=== PATIENT | female | born 1970 | race Caucasian/White ===

== ENCOUNTER 2018-01-26 12:18 | Emergency (ER) | payer OTHER ==
--- NOTE | 2018-01-26 12:33 | EDPHYS ---
Physician Documentation [facility] Name: Shantal Ruiz Age: 48 yrs Sex: Female : 1970 Arrival Date: 01/26/2018 Time: 12:19 Bed 28 Private MD: JAMIE BLAIR ED Physician Gilmer Haney HPI: 01/26 12:43 This 48 yrs old Female presents to ER via Ambulatory with complaints of kb Abscess. 12:43 The patient presents with an abscess of the lumbar area. Description: draining, kb erythematous, swollen, warm. Onset: The symptoms/episode began/occurred today. Possible cause(s): unknown. Associated signs and symptoms: Pertinent positives: drainage, erythema, swelling. Modifying factors: the symptoms are alleviated by nothing, the symptoms are aggravated by nothing. Severity of symptoms: At their worst the symptoms were moderate, in the emergency department the symptoms are unchanged. The patient has not experienced similar symptoms in the past. The patient has not recently seen a physician. Pt states "I think I have an abscess. I've never had one before and just wanted you to look at it and make sure that is what it is. I have an appt with Dr Mtz at 2 and am going to see him, but wanted to make sure it was an abscess first since he wasn't in the office when I went by just now.". 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 - Social history:: Smoking status: Patient uses tobacco products, smokes one-half pack cigarettes per day. - Ebola Screening: : Patient denies travel to an Ebola-affected area in the 21 days before illness onset. ROS: 12:50 Constitutional: Negative for fever, chills, and weight loss, Cardiovascular: Negative kb for chest pain, palpitations, and edema, Respiratory: Negative for shortness of breath, cough, wheezing, and pleuritic chest pain, Abdomen/GI: Negative for abdominal pain, nausea, vomiting, diarrhea, and constipation, MS/Extremity: Negative for injury and deformity, Neuro: Negative for headache, weakness, numbness, tingling, and seizure. 12:50 Skin: Positive for abscess, of the lumbar area. Exam: 12:50 Constitutional: This is a well developed, well nourished patient who is awake, alert, kb and in no acute distress. Head/Face: Normocephalic, atraumatic. Chest/axilla: Normal chest wall appearance and motion. Nontender with no deformity. No lesions are appreciated. Cardiovascular: Regular rate and rhythm with a normal S1 and S2. No gallops, murmurs, or rubs. Normal PMI, no JVD. No pulse deficits. Respiratory: Lungs have equal breath sounds bilaterally, clear to auscultation and percussion. No rales, rhonchi or wheezes noted. No increased work of breathing, no retractions or nasal flaring. Abdomen/GI: Soft, non-tender, with normal bowel sounds. No distension or tympany. No guarding or rebound. No evidence of tenderness throughout. Back: No spinal tenderness. No costovertebral tenderness. Full range of motion. MS/ Extremity: Pulses equal, no cyanosis. Neurovascular intact. Full, normal range of motion. Neuro: Awake and alert, GCS 15, oriented to person, place, time, and situation. Cranial nerves II-XII grossly intact. Motor strength 5/5 in all extremities. Sensory grossly intact. Cerebellar exam normal. Normal gait. 12:50 Skin: abscess, that is moderate sized, of the lumbar area, with drainage, with fluctuance, with induration. Vital Signs: 12:24 BP 121 / 78; Pulse 95; Resp 20; Temp 97.6; Pulse Ox 100% on R/A; Weight 63.5 kg (R); aj1 Height 5 ft. 10 in. (177.80 cm) (R); Pain 10/10; 12:24 Body Mass Index 20.09 (63.50 kg, 177.80 cm) aj1 MDM: 12:27 Patient medically screened. kb 12:50 Data reviewed: vital signs, nurses notes. Data interpreted: Pulse oximetry: on room air kb is 100 %. Interpretation: normal. Counseling: I had a detailed discussion with the patient and/or guardian regarding: the historical points, exam findings, and any diagnostic results supporting the discharge/admit diagnosis, the need for outpatient follow up, a general surgeon, to return to the emergency department if symptoms worsen or persist or if there are any questions or concerns that arise at home. ED course: Pt got up and left after I explained that she did have an abscess stating "ok, good. I will go see Dr Mtz. I just wanted to make sure.". Administered Medications: No medications were administered Disposition: 17:08 Co-signature as Attending Physician, Gilmer Haney MD. rn Disposition: 01/26/18 12:32 Discharged to Home. Impression: Cutaneous abscess of back [any part, except buttock]. - Condition is Stable. - Discharge Instructions: Skin Abscess, [id number]. - Medication Reconciliation Form, Thank You Letter, Antibiotic Education, Prescription Opioid Use form. - Follow up: Private Physician; When: 2 - 3 days; Reason: Recheck today's complaints, Continuance of care, Re-evaluation by your physician. Follow up: Emergency Department; When: As needed; Reason: Worsening of condition. Signatures: Malinda Ponce, ESTEPHANIA-C GIFTS OFFICER-Ckb Gypsy Murry RN RN aj1 Meghana Zhao, LORENZO RN iw Gilmer Haney MD MD yarn winder: (The following items were deleted from the chart) 12:34 12:32 01/26/2018 12:32 Discharged to Home. Impression: Cutaneous abscess of back [any iw part, except buttock]. Condition is Stable. Forms are Medication Reconciliation Form, Thank You Letter, Antibiotic Education, Prescription Opioid Use. Follow up: Private Physician; When: 2 - 3 days; Reason: Recheck today's complaints, Continuance of care, Re-evaluation by your physician. Follow up: Emergency Department; When: As needed; Reason: Worsening of condition. kb
--- NOTE | 2018-01-26 12:33 | ER ---
Nurse's Notes [facility] Name: Shantal Ruiz Age: 48 yrs Sex: Female : 1970 Arrival Date: 01/26/2018 Time: 12:19 Bed 28 Private MD: JAMIE BLAIR Diagnosis: Cutaneous abscess of back [any part, except buttock] Presentation: 01/26 12:21 Presenting complaint: Patient states: Reports that she has an abscess on her tailbone aj1 that has been there for the past 3 to 4 days. Reports it has draining yellow bloody pus. Denies fever. Reports that she has an appointment with Dr. Mtz later today. Transition of care: patient was not received from another setting of care. Onset of symptoms was January 23, 2018. Risk Assessment: Do you want to hurt yourself or someone else? Patient reports no desire to harm self or others. Initial Sepsis Screen: Does the patient meet any 2 criteria? Systolic BP < 90 mmHg. No. Patient's initial sepsis screen is negative. Does the patient have a suspected source of infection? No. Patient's initial sepsis screen is negative. Care prior to arrival: None. 12:21 Method Of Arrival: Ambulatory aj1 12:21 Acuity: JUAN J 4 aj1 Triage Assessment: 12:24 General: Appears in no apparent distress. comfortable, Behavior is calm, cooperative, aj1 appropriate for age. Pain: Complains of pain in coccyx Pain currently is 10 out of 10 on a pain scale. Neuro: Level of Consciousness is awake, alert, obeys commands. Cardiovascular: Patient's skin is warm and dry. Respiratory: Airway is patent Respiratory effort is even, unlabored, Respiratory pattern is regular, symmetrical. 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 - Social history:: Smoking status: Patient uses tobacco products, smokes one-half pack cigarettes per day. - Ebola Screening: : Patient denies travel to an Ebola-affected area in the 21 days before illness onset. Screenin:30 Abuse screen: Denies threats or abuse. Denies injuries from another. Nutritional iw screening: No deficits noted. Tuberculosis screening: No symptoms or risk factors identified. Fall Risk None identified. Assessment: 12:25 General: Appears in no apparent distress. comfortable, Behavior is calm, cooperative. iw Pain: Complains of pain in coccyx and lumbar area. Neuro: Level of Consciousness is awake, alert, obeys commands, Oriented to person, place, time, Moves all extremities. Full function. Cardiovascular: Capillary refill < 3 seconds in bilateral fingers Patient's skin is warm and dry. Respiratory: Respiratory effort is even, unlabored, Respiratory pattern is regular, symmetrical. Derm: Skin is intact, is healthy with good turgor. Musculoskeletal: Range of motion: intact in all extremities. Vital Signs: 12:24 BP 121 / 78; Pulse 95; Resp 20; Temp 97.6; Pulse Ox 100% on R/A; Weight 63.5 kg (R); aj1 Height 5 ft. 10 in. (177.80 cm) (R); Pain 10/10; 12:24 Body Mass Index 20.09 (63.50 kg, 177.80 cm) aj1 ED Course: 12:19 Patient arrived in ED. sb2 12:21 JAMIE BLAIR is Private Physician. sb2 12:24 Triage completed. aj1 12:24 Arm band placed on Patient placed in waiting room, Patient notified of wait time. aj1 12:25 Malinda Ponce [facility]C [facility]. kb 12:25 Gilmer Haney MD is Attending Physician. kb 12:25 Patient has correct armband on for positive identification. iw 12:30 Meghana Zhao, LORENZO is Primary Nurse. iw 12:33 No provider procedures requiring assistance completed. Patient did not have IV access iw during this emergency room visit. Administered Medications: No medications were administered Outcome: 12:32 Discharge ordered by . kb 12:33 Discharged to home ambulatory. iw 12:33 Condition: good 12:33 Discharge instructions given to patient, Instructed on discharge instructions, follow up and referral plans. Demonstrated understanding of instructions, follow-up care. 12:34 Patient left the ED. iw Signatures: Malinda Ponce FNP-C FNP-Ckb Johnson, Angela, RN RN aj1 Meghana Zhao RN RN iw Rosa Maria Leon sb2
== END 2018-01-26 12:34 | disposition home or self-care (01) ==
LOC: ER 12:18
DX: L02.212 Cutaneous abscess of back [any part, except buttock and flank] (principal); F17.210 Nicotine dependence, cigarettes, uncomplicated; Z88.2 Allergy status to sulfonamides
CPT/HCPCS: 99281

== ENCOUNTER 2018-01-27 08:12 | Day surgery (SDC) | payer OTHER ==
[2018-01-27] MEDS ORDERED: CEFAZOLIN/SWI 1gm 1 GM/10 ML SYR ONE (08:55)
[2018-01-27 08:57] LABS: Specific Gravity 1.025 (1.005-1.030)
[2018-01-27] MEDS: Ringers Lactate 1,000 ML IV ONE ×2 (08:59→09:10)
[2018-01-27] MEDS ORDERED: ALBUTEROL 2.5 MG/3 ML NEB SOL NEB ONE (09:14)
[2018-01-27] MEDS ORDERED: MIDAZOLAM HCL 2 MG/2 ML INJ ONE (09:16)
[2018-01-27] MEDS ORDERED: PROPOFOL 200 MG/20 ML VIAL IV ONE ×3 (09:16→10:27)
[2018-01-27] MEDS ORDERED: FENTANYL CITR 100 MCG/2 ML ONE (09:16)
[2018-01-27] MEDS ORDERED: LIDOCAINE 2% MPF 5 ML VIAL ONE (09:16)
[2018-01-27] MEDS ORDERED: ALBUTEROL 2.5 MG/3 ML NEB SOL ONE (09:27)
[2018-01-27] MEDS ORDERED: ONDANSETRON 4 MG/2 ML VIAL ONE (09:31)
[2018-01-27] MEDS ORDERED: EPHEDRINE SULF 50 MG/10 ML SYR ONE (10:29)
[2018-01-27] MEDS ORDERED: COLLAGENASE 30 GM OINTMENT TOP ONE (10:38)
--- NOTE | 2018-01-27 10:38 | P.OP ---
Preoperative diagnosis: Sacral / Buttock Abscess Postoperative diagnosis: Sacral / Buttock Abscess Primary procedure: Incision and drainage of Sacral / Buttock Abscess Anesthesia: GETA + Local Estimated blood loss: <2cc Specimen: Cultures and necrotic tissue Findings: ~2.5cm round x 1cm deep wound of Sacral / Buttock Complications: None Transferred to: Recovery Room Condition: Good
[2018-01-27] MEDS ORDERED: HYDROCODONE/APAP 5/325 MG TAB PO ONE (12:05)
[2018-01-27] MEDS ORDERED: HYDROCODONE/APAP 5/325 MG TAB ONE (12:10)
--- NOTE | 2018-01-27 21:27 | OP ---
Date of Procedure: 01/27/2018 Surgeon: Luis Mtz MD, Preoperative Diagnosis: Sacral/buttock abscess, slightly to the right of midline. Postoperative Diagnosis: Sacral/buttock abscess, slightly to the right of midline. Procedure Performed: Incision and drainage of sacral/buttock abscess. Anesthesia: General endotracheal plus local with 0.5% Marcaine without epinephrine. Estimated Blood Loss: Less than 2 cc. Specimen: Cultures and necrotic tissue sent. Findings: A 2.5-cm x 1-cm deep wound of the sacral/buttock area, slightly to the right of midline. Complications: None. Disposition: Transferred to recovery room in good condition. Procedure In Detail: After informed consent was obtained, the patient was brought to the operating r oom and prepped and draped in the usual sterile fashion. After adequate anesthesia was achieved, I a nesthetized the area circumferentially with 0.5% Marcaine. I then proceeded to take off all the necr otic tissue over the top. Cultures were sent at this time. The abscess fluid was returned at this t thu. After I removed this necrotic tissue, I sent it for pathologic examination, and the culture was sent off. I then used a curette to clean off this necrotic granulation tissue at the base of this a char down almost to the level of the sacral bone. However, the bone was not exposed at this time. I circumferentially removed all nonviable tissue using Metzenbaum scissors circumferentially. Electroc autery was used to achieve hemostasis quite easily at this time. The area was copiously irrigated mu ltiple times to completely clear, and Santyl with half-inch plain packing was placed into the wound a t this time, and a sterile dressing was placed over the top. The patient tolerated the procedure wel l without evidence of complication and transferred back in good condition. All counts were correct a t the end of the case. KATHY/MODL Voice ID: [id number] Report ID: [id number]
== END 2018-01-27 12:45 | disposition home or self-care (01) ==
LOC: OR 08:12
PROVIDERS: ATTEND Surgery
PROC: 0J990ZZ Drainage of Buttock Subcutaneous Tissue and Fascia, Open Approach (ICD-10-PCS; principal; 2018-01-27 09:15)
DX: L02.31 Cutaneous abscess of buttock (principal); Z88.2 Allergy status to sulfonamides
CPT/HCPCS: 10060; 81025; 87070; 87075; 87077; 87186; 87205 ×2; 88304; 94640; J0690; J2250; J2405; J3010; J3590

== ENCOUNTER 2019-02-04 10:45 | Emergency (ER) | payer OTHER ==
[2019-02-04 12:06] LABS: Absolute Lymphocytes (CBC) 1.6 K/uL (0.7-4.9); Basophils % 0.7 % (0-1.3); Hematocrit 38.2 % (36.0-45.0); Lymphocytes % 14.2 % (15.3-44.8); RBC Red Blood Cell Count 4.95 M/uL (3.86-4.86)
[2019-02-04 12:27] LABS: Albumin 4.8 g/dL (3.4-5.0); Bilirubin Direct 0.2 mg/dL (0-0.2); Bilirubin Total 0.9 mg/dL (0.2-1.0); Potassium 3.1 mmol/L (3.5-5.1); Protein, Total 7.8 g/dL (6.4-8.2)
[2019-02-04] MEDS ORDERED: POTASSIUM CL SA 10 MEQ TAB PO ONE (12:40)
--- NOTE | 2019-02-04 12:56 | EDPHYS ---
Physician Documentation [facility] Name: Shantal Ruiz Age: 49 yrs Sex: Female : 1970 Arrival Date: 02/04/2019 Time: 10:47 Bed 20 Private MD: ED Physician Gilmer Haney HPI: 02/04 11:41 This 49 yrs old Female presents to ER via Ambulatory with complaints of jr8 Weight Loss. 11:41 Onset: The symptoms/episode began/occurred last year. Associated signs and symptoms: jr8 Pertinent positives: cough, Pertinent negatives: abdominal pain, chest pain, constipation, diarrhea, dysuria, earache, fever, headache, nasal discharge, seizure, shortness of breath, sore throat, vomiting, wheezing. Pt reports that she has had significant weight loss over the last year of so but lost pounds in the last month, reports she does not eat normal meals, sometimes due to taste or decreased appetite. . 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 - Social history:: Smoking status: Patient uses tobacco products, smokes one-half pack cigarettes per day. - Ebola Screening: : Patient negative for fever greater than or equal to 101.5 degrees Fahrenheit, and additional compatible Ebola Virus Disease symptoms Patient denies exposure to infectious person Patient denies travel to an Ebola-affected area in the 21 days before illness onset No symptoms or risks identified at this time. ROS: 11:41 Constitutional: Negative for fever, chills, Eyes: Negative for injury, pain, redness, jr8 and discharge, ENT: Negative for injury, pain, and discharge, Neck: Negative for injury, pain, and swelling, Cardiovascular: Negative for chest pain, palpitations, and edema, Abdomen/GI: Negative for abdominal pain, nausea, vomiting, diarrhea, and constipation, Back: Negative for injury and pain, MS/Extremity: Negative for injury and deformity. 11:41 Respiratory: Positive for cough, shortness of breath, wheezing. Exam: 11:41 Constitutional: This is a well developed,who is awake, alert, and in no acute jr8 distress. Head/Face: Normocephalic, atraumatic. Eyes: Pupils equal round and reactive to light, extra-ocular motions intact. Lids and lashes normal. Conjunctiva and sclera are non-icteric and not injected. Cornea within normal limits. Periorbital areas with no swelling, redness, or edema. ENT: Nares patent. No nasal discharge, no septal abnormalities noted. Tympanic membranes are normal and external auditory canals are clear. Oropharynx with no redness, swelling, or masses, exudates, or evidence of obstruction, uvula midline. Mucous membranes moist. Neck: Trachea midline, no thyromegaly or masses palpated, and no cervical lymphadenopathy. Supple, full range of motion without nuchal rigidity, or vertebral point tenderness. No Meningismus. Chest/axilla: Normal chest wall appearance and motion. Nontender with no deformity. No lesions are appreciated. Cardiovascular: Regular rate and rhythm with a normal S1 and S2. No gallops, murmurs, or rubs. Normal PMI, no JVD. No pulse deficits. Abdomen/GI: Soft, non-tender, with normal bowel sounds. No distension or tympany. No guarding or rebound. No evidence of tenderness throughout. Back: No spinal tenderness. No costovertebral tenderness. Full range of motion. 11:41 Respiratory: the patient does not display signs of respiratory distress, Respirations: prolonged exhalation, Breath sounds: wheezing: expiratory that is mild, is heard diffusely. Vital Signs: 11:15 BP 129 / 83; Pulse 81; Resp 16; Temp 97.8(O); Pulse Ox 98% on R/A; Weight 53.07 kg; em Height 5 ft. 10 in. (177.80 cm); Pain 0/10; 12:09 BP 132 / 75; Pulse 71; Resp 18; Pulse Ox 99% on R/A; em 11:15 Body Mass Index 16.79 (53.07 kg, 177.80 cm) em MDM: 11:05 Patient medically screened. jr8 12:52 Data reviewed: vital signs, nurses notes, lab test result(s), radiologic studies, and jr8 as a result, I will discharge patient. Data interpreted: Pulse oximetry: on room air is 99 %. Interpretation: normal. Counseling: I had a detailed discussion with the patient and/or guardian regarding: the historical points, exam findings, and any diagnostic results supporting the discharge/admit diagnosis, lab results, radiology results, the need for outpatient follow up, a family practitioner. ED course: Discussed no finding of emergent conditions and need for outpatient FU as well as return precautions. 02/04 11:34 Order name: Basic Metabolic Panel; Complete Time: 12:38 8 02/04 11:34 Order name: CBC with Diff; Complete Time: 12:16 jr8 02/04 11:34 Order name: LFT's; Complete Time: 12:38 jr8 02/04 11:34 Order name: Magnesium; Complete Time: 12:38 8 02/04 11:34 Order name: XRAY Chest Pa And Lat (2 Views) jr8 02/04 11:34 Order name: Cardiac monitoring; Complete Time: 11:47 8 02/04 11:34 Order name: IV Saline Lock; Complete Time: 11:46 8 02/04 11:34 Order name: Labs collected and sent; Complete Time: 11:46 8 02/04 11:34 Order name: O2 Per Protocol; Complete Time: 11:46 8 02/04 11:34 Order name: O2 Sat Monitoring; Complete Time: 11:46 8 02/04 12:02 Order name: Diet Regular; Complete Time: 12:03 rn Administered Medications: 12:45 Drug: Potassium Chloride 40 mEq Route: PO; em Disposition: 13:18 Co-signature as Attending Physician, Gilmer Haney MD. rn Disposition: 02/04/19 12:55 Discharged to Home. Impression: Mild protein-calorie malnutrition. - Condition is Stable. - Discharge Instructions: Malnutrition. - Prescriptions for Albuterol Sulfate 90 mcg/actuation - inhale 1-2 puff by INHALATION route every 4-6 hours; 1 Inhaler. - Medication Reconciliation Form, Thank You Letter form. - Follow up: Private Physician; When: 7 - 10 days; Reason: Recheck today's complaints, Re-evaluation by your physician. - Problem is chronic. - Symptoms are unchanged. Signatures: Dispatcher [employer] EDOsman Stacy, CLINICAL ENGINEERING DIRECTOR CLINICAL ENGINEERING DIRECTOR em Gilmer Haney MD MD rn Roszak, Josh, PA PA jr8 Corrections: (The following items were deleted from the chart) 11:35 11:34 EKG - Nurse/Tech ordered. jr8 jr8 13:06 12:55 02/04/2019 12:55 Discharged to Home. Impression: Mild protein-calorie em malnutrition. Condition is Stable. Forms are Medication Reconciliation Form, Thank You Letter, Antibiotic Education, Prescription Opioid Use. Follow up: Private Physician; When: 7 - 10 days; Reason: Recheck today's complaints, Re-evaluation by your physician. Problem is chronic. Symptoms are unchanged. jr8
--- NOTE | 2019-02-04 12:56 | ER ---
Nurse's Notes [facility] Name: Shantal Ruiz Age: 49 yrs Sex: Female : 1970 Arrival Date: 02/04/2019 Time: 10:47 Bed 20 Private MD: Diagnosis: Mild protein-calorie malnutrition Presentation: 02/04 11:13 Presenting complaint: Patient states: haven't been eating much in the past several em months, has lost about 20 lbs in the past month, also reports weakness and cold sweats, denies fever. Transition of care: patient was not received from another setting of care. Onset of symptoms was January 05, 2019. Risk Assessment: Do you want to hurt yourself or someone else? Patient reports no desire to harm self or others. Initial Sepsis Screen: Does the patient meet any 2 criteria? No. Patient's initial sepsis screen is negative. Does the patient have a suspected source of infection? No. Patient's initial sepsis screen is negative. Care prior to arrival: None. 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 - Social history:: Smoking status: Patient uses tobacco products, smokes one-half pack cigarettes per day. - Ebola Screening: : Patient negative for fever greater than or equal to 101.5 degrees Fahrenheit, and additional compatible Ebola Virus Disease symptoms Patient denies exposure to infectious person Patient denies travel to an Ebola-affected area in the 21 days before illness onset No symptoms or risks identified at this time. Screenin:16 Abuse screen: Denies threats or abuse. Nutritional screening: No deficits noted. em Tuberculosis screening: No symptoms or risk factors identified. Fall Risk None identified. Assessment: 11:15 General: Appears in no apparent distress. comfortable, Behavior is calm, cooperative, em Denies fever. Pain: Denies pain. Neuro: Level of Consciousness is awake, alert, obeys commands, Oriented to person, place, time, situation, Appropriate for age. Cardiovascular: Denies chest pain, Capillary refill < 3 seconds Patient's skin is warm and dry. Respiratory: Airway is patent Respiratory effort is even, unlabored, Respiratory pattern is regular, symmetrical. GI: Abdomen is flat, Reports nausea, Patient currently denies diarrhea, vomiting. Derm: Skin is intact, is healthy with good turgor, Skin is pink, warm \T\ dry. Musculoskeletal: Capillary refill < 3 seconds, Range of motion: intact in all extremities. 11:35 Reassessment: i agree with previous assessment. hb 12:09 Reassessment: Patient appears in no apparent distress at this time. Patient and/or em family updated on plan of care and expected duration. Pain level reassessed. Patient is alert, oriented x 3, equal unlabored respirations, skin warm/dry/pink. Vital Signs: 11:15 BP 129 / 83; Pulse 81; Resp 16; Temp 97.8(O); Pulse Ox 98% on R/A; Weight 53.07 kg; em Height 5 ft. 10 in. (177.80 cm); Pain 0/10; 12:09 BP 132 / 75; Pulse 71; Resp 18; Pulse Ox 99% on R/A; em 11:15 Body Mass Index 16.79 (53.07 kg, 177.80 cm) em ED Course: 10:47 Patient arrived in ED. as 11:05 Kilo Scruggs PA is PHCP. jr8 11:05 Gilmer Haney MD is Attending Physician. jr8 11:13 Osman Finch LVN is Primary Nurse. em 11:15 Arm band placed on. em 11:15 Patient has correct armband on for positive identification. Bed in low position. Call em light in reach. Pulse ox on. NIBP on. 11:21 Triage completed. hb 11:44 XRAY Chest Pa And Lat (2 Views) In Process Unspecified. EDMS 11:50 Initial lab(s) drawn, by me, sent to lab. Inserted saline lock: 20 gauge in right em antecubital area, using aseptic technique. Blood collected. 13:05 No provider procedures requiring assistance completed. IV discontinued, intact, em bleeding controlled, No redness/swelling at site. Pressure dressing applied. Administered Medications: 12:45 Drug: Potassium Chloride 40 mEq Route: PO; em Outcome: 12:55 Discharge ordered by MD. ford 13:05 Discharged to home ambulatory. em 13:05 Condition: good 13:05 Discharge instructions given to patient, Instructed on discharge instructions, follow up and referral plans. medication usage, Demonstrated understanding of instructions, follow-up care, medications, Prescriptions given X 1. 13:06 Patient left the ED. em Signatures: Dispatcher [employer] EDWI Osman Finch, PAINTING MACHINE OPERATOR PAINTING MACHINE OPERATOR Vilma Peoples Josh, PA PA jr8 Baxter, Heather, RN RN
[2019-02-04 13:32] VITALS: TEMP 97.8
[2019-02-04 13:33] VITALS: BP 132/75; O2SAT 99
--- NOTE | 2019-02-04 16:13 | RAD REPORT ---
EXAM DESCRIPTION: RAD - Chest Pa And Lat (2 Views) - 02/04/2019 11:45 am CLINICAL HISTORY: weight loss;Dyspnea COMPARISON: None. TECHNIQUE: PA and lateral views of the chest were obtained. FINDINGS: The lungs are hyperexpanded with flattened diaphragm and significantly increased retroster nal space. No peripheral mass or consolidation. Mediastinal and hilar regions are not outside of norm al range. No gross evidence for a central malignancy. There is questionable partial atelectasis of th e right middle lobe. Heart size is normal and central vasculature is within normal limits. No pleural effusion or pneu mothorax seen. No acute bony finding noted. No aortic abnormality. IMPRESSION: Prominent COPD pattern with no gross evidence for central malignant mass. No peripheral mass or consolidation.
== END 2019-02-04 13:06 | disposition home or self-care (01) ==
LOC: ER 10:45
DX: E44.1 Mild protein-calorie malnutrition (principal); F17.210 Nicotine dependence, cigarettes, uncomplicated; Z88.2 Allergy status to sulfonamides
CPT/HCPCS: 36415; 71046; 80048; 80076; 83735; 85025; 99284

== ENCOUNTER 2019-07-10 00:23 | Emergency (ER) | payer OTHER ==
--- OUTSIDE RECORDS SUMMARY | 2019-07-10 00:25 | XMS REPORT ---
:1970 [facility] Address [address] [place] [address] Dr. Wolf [address] [place] [id number] Care Team Providers Name Role Phone Unavailable Unavailable Unavailable Problems This patient has no known problems. Allergies, Adverse Reactions, Alerts This patient has no known allergies or adverse reactions. Medications This patient has no known medications.
[2019-07-10] MEDS ORDERED: OXYMETAZOLINE HCL 0.05% 15ML NAS ONE (00:38)
[2019-07-10] MEDS ORDERED: ACETAMINOPHEN 500 MG TAB ONE (01:19)
[2019-07-10] MEDS ORDERED: TETANUS & DIPHTHERIA TOX,ADULT 0.5 ML VIAL ONE (01:20)
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
[2019-07-10 02:41] VITALS: TEMP 98.4
[2019-07-10 02:44] VITALS: BP 127/93; O2SAT 100
--- NOTE | 2019-07-10 07:45 | RAD REPORT ---
EXAM DESCRIPTION: RADNasal Bones07/10/2019 2:55 am CLINICAL HISTORY: Nasal pain status post trauma FINDINGS: Comminuted mildly depressed nasal bone fracture
== END 2019-07-10 02:19 | disposition home or self-care (01) ==
LOC: ER 00:23
DX: S01.21XA Laceration without foreign body of nose, initial encounter (principal); S02.2XXA Fracture of nasal bones, initial encounter for closed fracture; W17.89XA Other fall from one level to another, initial encounter; Y93.39 Activity, other involving climbing, rappelling and jumping off; Y92.89 Other specified places as the place of occurrence of the external cause; Z23 Encounter for immunization
CPT/HCPCS: 70160; 90471; 90714; 99283

== ENCOUNTER 2019-07-15 15:12 | Emergency (ER) | payer OTHER ==
--- OUTSIDE RECORDS SUMMARY | 2019-07-15 15:14 | XMS REPORT ---
:1970 [facility] Address [address] [place] [address] Dr. Wolf [address] [place] [id number] Care Team Providers Name Role Phone Unavailable Unavailable Unavailable Problems This patient has no known problems. Allergies, Adverse Reactions, Alerts This patient has no known allergies or adverse reactions. Medications This patient has no known medications.
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
[2019-07-15 16:12] LABS: Urine Blood NEGATIVE (NEG); Urine Glucose NEGATIVE (NEG); Urine Protein 2+ (NEG); Urine Specific Gravity 1.015 (1.005-1.030)
[2019-07-15] MEDS ORDERED: CIPROFLOXACIN HCL 500 MG TAB ONE (16:24)
--- NOTE | 2019-07-15 16:25 | RAD REPORT ---
EXAM DESCRIPTION: RAD - Knee Left 3 View - 07/15/2019 4:02 pm CLINICAL HISTORY: PAIN, knee injury COMPARISON: No comparisons FINDINGS: No fracture, dislocation or periosteal reaction.No joint effusion seen. No joint space allie rowing. No soft tissue abnormality. IMPRESSION: Negative left knee. Clinical concerns for internal derangement or occult bony injury could be further assessed with MR im aging.
--- NOTE | 2019-07-15 16:26 | RAD REPORT ---
EXAM DESCRIPTION: RAD - Chest Pa And Lat (2 Views) - 07/15/2019 4:04 pm CLINICAL HISTORY: Chest pain;Cough COMPARISON: January 2019 TECHNIQUE: Frontal and lateral views of the chest were obtained. FINDINGS: The lungs are hyperexpanded with flattened diaphragm and increased retrosternal space. Nip ple shadows are present. No new mass or consolidation. Hilar regions are stable. Heart size is norm al and central vasculature is within normal limits. No pleural effusion or pneumothorax seen. Old r ib trauma noted on the left. No aortic abnormality. IMPRESSION: Prominent COPD similar to comparison. No acute component seen.
[2019-07-15 16:46] VITALS: TEMP 97.8
[2019-07-15 16:47] VITALS: BP 122/68; O2SAT 99
== END 2019-07-15 16:39 | disposition home or self-care (01) ==
LOC: ER 15:12
DX: S29.011A Strain of muscle and tendon of front wall of thorax, initial encounter (principal); S29.012A Strain of muscle and tendon of back wall of thorax, initial encounter; S80.02XA Contusion of left knee, initial encounter; N39.0 Urinary tract infection, site not specified; F31.9 Bipolar disorder, unspecified; Y04.8XXA Assault by other bodily force, initial encounter; Y93.9 Activity, unspecified; Y92.9 Unspecified place or not applicable; Z88.2 Allergy status to sulfonamides; F17.210 Nicotine dependence, cigarettes, uncomplicated
CPT/HCPCS: 71046; 81003; 81025; 87086; 87088; 99284